=== PATIENT | male | born 1985 | race Caucasian/White ===

== ENCOUNTER 2016-12-16 10:00 | Inpatient (IN) | payer OTHER ==
[~2016-12-16] VITALS: Ht 175.3 cm; Wt 72.6 kg
--- NOTE | ~2016-12-16 | DS ---
Unit #: [id number] #: [id number] Patient: MERCY PONCE [id number] [facility] [place] [address] [id number] I MR#: [id number] NAME: MERCY PONCE. ROOM: P209 Age: 31 Sex: M Admission Date: 12/16/2016 : 1985 Discharge Date: 12/20/2016 Attending Physician: Grday Goetz M.D. Primary Care Physician: Generic Doctor Not In System DISCHARGE SUMMARY IDENTIFYING DATA Mr. Ponce is a 31-year-old, single, white male, who is a resident of [place], [place], and was self-referred to the hospital on a voluntary basis. DISCHARGE DIAGNOSES Psychiatric: Alcohol dependence, moderate and acute withdrawals; alcohol-induced mood disorder. Medical: None. Stressors: Mild psychosocial stressors. HISTORY OF PRESENT ILLNESS Please see initial psychiatric evaluation for details. PAST PSYCHIATRIC HISTORY Please see initial psychiatric evaluation for details. PAST MEDICAL HISTORY Please see initial psychiatric evaluation for details. HOSPITAL COURSE The patient was admitted to the adult chemical dependency unit at [facility] sarah Núñez and was oriented to the hospital environment. Routine p.r.n. medications were initiated, and he was started on alcohol detox protocol and was closely monitored. He was taking the medications regularly and was tolerating them fairly well and was able to show a decent therapeutic response with improvement in depression and anxiety, and was willing to continue treatment on an outpatient basis and was able to come out of the detox without any complications and as such, it was decided that he will be discharged home and will continue treatment on an outpatient basis. DISCHARGE MEDICATIONS None. DISCHARGE CONDITION Stable. PROGNOSIS Fair. Unit #: [id number] #: [id number] Patient: MERCY PONCE Dictated by... Luiz Chauhan/nikhil TD: 12/20/2016 08:21 JOB #: [id number] DISCHARGE SUMMARY Page 1 of 1 X Grady Goetz MD X DISCHARGE SUMMARY
--- NOTE | ~2016-12-16 | HP ---
Unit #: [id number] #: [id number] Patient: MERCY PONCE [id number] [place] [address] [id number] I MR#: [id number] NAME: MERCY PONCE. ROOM: P209 Age: 31 Sex: M Admission Date: 12/16/2016 : 1985 Attending Physician: Grady Goetz M.D. Admitting Physician: Grady Goetz M.D. Primary Care Physician: Generic Doctor Not In System HISTORY AND PHYSICAL HISTORY OF PRESENT ILLNESS Mercy is a 31-year-old male admitted on 12/16/[address] [place] [address] for detox from alcohol. PAST MEDICAL HISTORY 1. Hepatitis C. 2. History of withdrawal seizures. PAST SURGICAL HISTORY Tonsil and adenoidectomy. ALLERGIES None. SOCIAL HISTORY Smokes 1 pack of cigarettes daily. Reports binge daily alcohol use and history of methamphetamine use. He is currently single and homeless. FAMILY HISTORY Noncontributory. REVIEW OF SYSTEMS CONSTITUTIONAL: No fever or chills. HEENT: Denies any sore throat, ear pain or runny nose. CARDIOVASCULAR: Denies chest pain, irregular heart rhythm or palpitations. CHEST: Denies shortness of breath or cough. No hemoptysis. GASTROINTESTINAL: Denies nausea, vomiting, diarrhea or chronic constipation. ENDOCRINE: Denies history of increased thirst or urination. No recent significant weight loss or gain. GENITOURINARY: Denies dysuria, frequency, or hematuria. SKIN: Denies any rashes. HEMATOLOGIC: Denies history of increased bleeding or bruising. MUSCULOSKELETAL: Denies any hot, swollen joints. No generalized muscle pain. NEUROLOGIC: Denies problems with vision or speech. No frequent, severe headaches. No numbness, tingling or weakness in any extremities. Denies loss of bladder or bowel control. CURRENT MEDICATIONS None. PHYSICAL EXAMINATION Unit #: [id number] #: [id number] Patient: MERCY PONCE GENERAL: Alert, oriented, in no acute distress. VITAL SIGNS: Blood pressure 140/96, heart rate 128. HEIGHT: 5 feet 9. WEIGHT: 160 pounds. SKIN: Warm and dry without rash or lesion. HEENT: Normocephalic. TMs not viewed. Oral and nasal passages clear. Conjunctivae clear. PERRLA. EOMs intact. NECK: Supple without lymphadenopathy or thyromegaly. HEART: Regular rate and rhythm without murmur. LUNGS: Clear. ABDOMEN: Soft, nontender, without masses or hepatosplenomegaly. : Not done. EXTREMITIES: No evidence of cyanosis, clubbing or edema. Moves all without focal deficit. NEUROLOGICAL: Grossly within normal limits. Cranial Nerves: II: Visual yeager are intact. III, IV AND : Extraocular movements are intact. Pupils are equal, round and reactive to light. V: Facial sensation is grossly normal. VII: Facial movements and expression are normal. VIII: Auditory acuity grossly intact. IX, X: Uvula is midline. Phonation is normal. XI: Patient shrugs shoulders and turns head normally. XII: Tongue protrudes in the midline. Sensory and Motor Function: Sensory and motor sensation is grossly normal. Motor: moves all extremities well. Coordination: Gait is normal. Deep Tendon Reflexes: Intact. IMPRESSION 1. Psychiatric admission. 2. History of withdrawal seizures. RECOMMENDATIONS PSYCHIATRIC: Per psychiatrist. MEDICAL: No contraindication to participate in facility's activities. MEDICAL PROGNOSIS Good. MEDICAL CONDITION Stable. Dictated by... Evelina Garcia/carlos TD: 12/16/2016 21:03 JOB #: [id number] Unit #: [id number] #: [id number] Patient: MERCY PONCE HISTORY AND PHYSICAL Page 1 of 1 X FELIX GOLDMAN APRN X HISTORY AND PHYSICAL
--- NOTE | ~2016-12-16 | PN ---
Unit #: [id number] #: [id number] Patient: MERCY PONCE [id number] [facility] [address] [place] [address] [id number] I MR#: [id number] NAME: MERCY PONCE. ROOM: P209 Age: 31 Sex: M Admission Date: 12/16/2016 : 1985 Attending Physician: Grady Goetz M.D. Admitting Physician: Grady Goetz M.D. Primary Care Physician: Alejandra Doctor Not In System [facility] PROGRESS NOTES DATE 12/18/2016 DISCUSSION Mr. Ponce is a 31-year-old, white male with substance abuse and mood disorder who was seen today and chart was reviewed and case was discussed with the staff. He has been anxious, withdrawn, and distress and discomfort as he goes through detox. Meanwhile, he has been cooperative with the treatment recommendations. He has been taking the medication and tolerating them fairly well with no reported side effects. MENTAL STATUS EXAM Young white male who was casually dressed with fair personal hygiene, appears to be in no acute distress or discomfort. He was awake and alert with impaired attention and concentration. His mood was anxious with congruent affect. His speech was slow and restricted in content. He denies any suicidal or homicidal ideation. His insight and judgement remains slightly impaired. TREATMENT PLAN 1. We will continue him on his current medications and treatment protocol. We will monitor his response and make further adjustments as needed. 2. We will continue to follow up. Dictated by... Luiz Chauhan/alicia TD: 12/20/2016 04:22 JOB #: [id number] Unit #: [id number] #: [id number] Patient: MERCY PONCE [facility] PROGRESS NOTES Page 1 of 1 X Grady Goetz MD PROGRESS NOTE
--- NOTE | ~2016-12-16 | PN ---
Unit #: [id number] #: [id number] Patient: MERCY PONCE [id number] [facility] [address] [place] [address] [id number] I MR#: [id number] NAME: MERCY PONCE. ROOM: P209 Age: 31 Sex: M Admission Date: 12/16/2016 : 1985 Attending Physician: Grady Goetz M.D. Admitting Physician: Grady Goetz M.D. Primary Care Physician: Alejandra Doctor Not In System [facility] PROGRESS NOTES DATE OF SERVICE 12/19/2016 DISCUSSION Mr. Ponce is a 31-year-old white male who was seen today. Chart was reviewed and case was discussed with the staff. He has been anxious, withdrawn, and rather seclusive to himself. Meanwhile, he has been cooperative with the treatment recommendations and has been taking the medications and tolerating them fairly well with no reported side effects. MENTAL STATUS EXAMINATION Young white male who is casually dressed with fair personal hygiene, appears to be in no acute distress or discomfort. He was awake and alert on interaction with intact orientation. His mood is anxious with congruent affect. He denies any suicidal or homicidal ideations and also denies any auditory or visual hallucinations. His insight and judgment remain slightly impaired. TREATMENT PLAN 1. We will continue him on his current medications and treatment protocol. We will monitor her response to the medications and make further adjustments as needed. 2. We will continue to follow up. Dictated by... Grady Goetz M.D. IAA/bzg TD: 12/20/2016 07:52 JOB #: [id number] Unit #: [id number] #: [id number] Patient: MERCY PONCE [facility] PROGRESS NOTES Page 1 of 1 X Grady Goetz MD PROGRESS NOTE
--- NOTE | ~2016-12-16 | PA ---
Unit #: [id number] #: [id number] Patient: MERCY PONCE [id number] [facility] [address] [place] [address] [id number] I MR#: [id number] NAME: MERCY PONCE. ROOM: P209 Age: 31 Sex: M Admission Date: 12/16/2016 : 1985 Date of Assessment: Attending Physician: Grady Goetz M.D. Admitting Physician: Grady Goetz M.D. Primary Care Physician: Generic Doctor Not In System PSYCHIATRIC ASSESSMENT DATE OF SERVICE 12/16/2016. IDENTIFYING DATA Mr. Ponce is a 31-year-old, single, white male who is a resident of [place], [place], and was self-referred to the hospital on a voluntary basis. CHIEF COMPLAINT "I've been drinking alcohol and I've been on a binge." HISTORY OF PRESENT ILLNESS Mr. Ponce is a 31-year-old white male with history of alcohol dependence, who was self-referred to the hospital. Upon presentation, he stated that he has been on a 3-week ann and has been drinking daily at least eight 24-ounce beers daily within few hours period of time and his last drink was on the morning of coming to the hospital. He reports having significant withdrawal symptoms with nausea and anxiety, and shaking and he being irritable and dry heaving and reports he has had seizures in the past and was seen to be in acute distress and discomfort. Upon presentation, he had a blood alcohol level was 0.22 and blood pressure of 151/100 and heart rate of 108 and as such, recommendation for inpatient level of care for detox was made and the patient was transferred to us. He does report some depression, anxiety, and irritability, but denies any suicidal ideations, intent, or plan. SUBSTANCE ABUSE HISTORY The patient reports history of methamphetamine and opioids and cocaine abuse in the past, but alcohol has been his drug of choice and he currently has been drinking 24 more beers on daily basis. PAST PSYCHIATRIC HISTORY The patient has not had any prior inpatient psychiatric and chemical dependency treatment. Review of the medical records indicate currently he is not active in any treatment program, is not seeing a psychiatrist, and not taking any psychotropic medications. PAST MEDICAL HISTORY Hepatitis C. ALLERGIES No known medication allergies. Unit #: [id number] #: [id number] Patient: MERCY PONCE PERSONAL AND SOCIAL HISTORY A 31-year-old white male who reports that he is single, unemployed, and essentially homeless and has poor social support system. MENTAL STATUS EXAMINATION Young white male who was casually dressed with fair personal hygiene, appears to be in no acute distress or discomfort. He was awake and alert on interaction with intact orientation to time, place, and person. His mood was anxious and depressed with a congruent affect. His speech was slow and restricted in content. His thought processes were disorganized with some looseness of associations and flight of ideas. His insight and judgment remain significantly impaired. DIAGNOSTIC IMPRESSION Psychiatric: Alcohol dependence, moderate and acute withdrawals; alcohol-induced mood disorder. Medical: None. Stressors: Moderate psychosocial stressors. TREATMENT PLAN 1. The patient has presented with history of substance abuse and mood disorder, and has been decompensating and will need inpatient hospitalization for detoxification, and safety, and stabilization. We will start him on detox protocol. We will closely monitor for any worsening withdrawal symptoms. 2. Supportive therapy was provided to the patient. 3. Safe, structured, and nourishing environment will be provided. ESTIMATED LENGTH OF STAY 5 to 7 days. ABILITY TO HELP SELF Limited. WILLINGNESS TO HELP SELF The patient appears to be willing to help self. STRENGTHS 1. Communicative. 2. Cooperative. PROBLEMS 1. Chronic dysphoric symptoms. 2. Chronic chemical dependency. 3. Poor social support system. DISCHARGE CRITERIA This will be contingent upon the patient's ability to go through detox without having any significant withdrawal symptoms as well as his ability to stay safe to himself, particularly after discharge from the hospital. Dictated by... Grady Goetz M.D. DC/nikhil TD: 12/17/2016 18:56 Unit #: [id number] #: [id number] Patient: MERCY PONCE JOB #: [id number] PSYCHIATRIC ASSESSMENT Page 1 of 1 X Grady Goetz MD PSYCHIATRIC ASSESSMENT
--- NOTE | ~2016-12-16 | PN ---
Unit #: [id number] #: [id number] Patient: MERCY PONCE [id number] [facility] [address] [place] [address] [id number] I MR#: [id number] NAME: MERCY PONCE. ROOM: P209 Age: 31 Sex: M Admission Date: 12/16/2016 : 1985 Attending Physician: Grady Goetz M.D. Admitting Physician: Grady Goetz M.D. Primary Care Physician: Alejandra Doctor Not In System [facility] PROGRESS NOTES DATE December 17, 2016 DISCUSSION Mr. Ponce is a 31-year-old white female, with bipolar mood disorder, who was seen today and chart was reviewed and the case was discussed with the staff. He was seen to be anxious, withdrawn, in acute distress and discomfort as he goes through detox and was unwilling to take care of his personal hygiene and was seen to be seclusive. He has been taking the medications and tolerating them fairly well with no reported side effects. MENTAL STATUS EXAMINATION Young white male, who was casually dressed with marginal personal hygiene and appears to be in slight distress and discomfort. He was awake and alert with impaired attention and concentration. His mood is anxious with a congruent affect. He denies any suicidal or homicidal ideations. His insight and judgment remain slightly impaired. TREATMENT PLAN 1. We will continue him on his current treatment protocol, and maintain him on detox protocol and monitor his response, and make further adjustments as needed. 2. We will continue to followup. Dictated by... Luiz Chauhan/estelita TD: 12/19/2016 11:04 JOB #: [id number] Unit #: [id number] #: [id number] Patient: MERCY PONCE [facility] PROGRESS NOTES Page 1 of 1 X Grady Goetz MD X PROGRESS NOTE
[2016-12-17 13:34] LABS: BASOPHIL% 0.3 % (0-2.5); EOSINOPHIL# 0.2 X10e3 (0-0.7); EOSINOPHIL% 2.5 % (0.0-7.0); HEMATOCRIT 45.9 % (38.0-50.0); HEMOGLOBIN 15.4 gm/dL (13.0-16.0); LYMPHOCYTE% 13.6 % (17.0-45.0); MEAN CELL VOLUME 95.8 FL (83-96); MEAN CORPUSCULAR HEMOGLOBIN 32.1 PG (28-34); MEAN CORPUSCULAR HGB CONC 33.5 g/dL (30-36); MEAN PLATELET VOLUME 8.1 FL (6.5-11.5); MONOCYTE# 0.5 X10e3 (0-1.0); MONOCYTE% 6.7 % (3.0-12.0); NEUTROPHIL# 5.5 X10e3 (1.5-7.1); NEUTROPHIL% 76.9 % (40-75); PLATELET COUNT 231 X10e3 (140-420); RED CELL DISTRIBUTION WIDTH 13.6 % (11.0-15.5); WHITE BLOOD COUNT 7.2 X10e3 (4.0-10.5)
[2016-12-17 13:38] LABS: ALBUMIN SERUM 4.3 g/dL (3.5-5.0); BILIRUBIN,TOTAL 1.4 mg/dL (0.2-2.0); BUN/CREATININE RATIO 11.66; CALCIUM SERUM 9.7 mg/dL (8.4-10.2); CREATININE SERUM 0.6 mg/dL (0.6-1.4); POTASSIUM 4.3 mmol/L (3.5-5.1); PROTEIN TOTAL SERUM 7.1 g/dL (6.0-8.3)
[2016-12-17 13:55] LABS: DIFF IND NO
[2016-12-20 10:02] LABS: URINE APPEARANCE CLEAR; URINE BILIRUBIN NEG (NEG); URINE BLOOD NEG (NEG); URINE COLOR YELLOW; URINE GLUCOSE NEG (NEG); URINE KETONE NEG (NEG); URINE LEUKOCYTE ESTERASE NEG (NEG); URINE NITRATE NEG (NEG); URINE PROTEIN NEG (NEG); URINE SPECIFIC GRAVITY 1.007 (1.003-1.035); URINE UROBILINOGEN 0.2 MG/DL (NEG)
[2016-12-20 10:20] LABS: AMPHETAMINE NEG (NEG); BARBITURATES NEG (NEG); BENZODIAZEPINES NEG (NEG); COCAINE NEG (NEG); MARIJUANA NEG (NEG); OPIATES NEG (NEG); TRICYCLIC ANTIDEPRESSANTS NEG (NEG); U METHADONE NEG (NEG)
== END 2016-12-20 09:08 | DRG 897 ==
LOC: P2S 13:17
PROVIDERS: Psychiatry & Neurology Psychiatry
PROC: HZ2ZZZZ Detoxification Services for Substance Abuse Treatment (ICD-10-PCS; principal; 2016-12-16)
DX: F10.230 Alcohol dependence with withdrawal, uncomplicated (principal); F10.24 Alcohol dependence with alcohol-induced mood disorder; Z59.0 Homelessness; Z86.19 Personal history of other infectious and parasitic diseases; F17.210 Nicotine dependence, cigarettes, uncomplicated
CPT/HCPCS: 80053; 80307; 81003; 85025